=== PATIENT | female | born 1950 | race Caucasian/White ===

== ENCOUNTER 2016-11-24 14:09 | Emergency (ER) | payer MEDICARE ==
[2016-11-24 15:22] LABS: Hematocrit 43 % (35-47); Hemoglobin 13.8 g/dl (12.0-16.0); Mean Corpuscular HGB Conc 33 g/dl (31-36); Mean Corpuscular Hemoglobin 31 pg (27-31); Mean Corpuscular Volume 96 fL (80-97); Mean Platelet Volume 9 um3 (7.4-10.4); Red Blood Count 4.45 10^6/ul (4.0-5.4); Red Cell Distribution Width 14 % (10.5-15)
[2016-11-24 15:37] LABS: Albumin 4.3 g/dL (3.2-5.2); Calcium 8.9 mg/dL (8.6-10.3); EGFR African American 57.6 (>60); EGFR Non-African American 44.8 (>60); Globulin 2.8 g/dL (2-4); Potassium 4.2 mmol/L (3.5-5.0); Total Bilirubin 0.6 mg/dL (0.2-1.0); Total Protein 7.1 g/dL (6.4-8.9)
[2016-11-24] MEDS ORDERED: Iodixanol* (CONTRAST) 320 MG/ML 100 ML SDV IV ONE (15:42)
--- NOTE | 2016-11-24 17:48 | RAD ---
INDICATION: Sore throat post transesophageal echocardiogram. Dark stool today. COMPARISON: No relevant prior exams available on the [facility] PACS for comparison. TECHNIQUE: Multidetector CT images skull base to lung apices with 50 mL Visipaque 320 IV contrast. Multiplanar reformation. REPORT: Asymmetry in the hypopharyngeal mucosal space contours with obscuration of the RIGHT lateral pharynx to hypopharynx including the piriform recess. Symmetric parapharyngeal fat. No soft tissue abscess collection evident. Negative for presence of an abnormal soft tissue gas collection. Negative for neck lymphadenopathy. Unremarkable parotid, submandibular, and thyroid glands. Mild atherosclerotic plaque at the carotid bifurcations without hemodynamic significant stenosis resulting. Negative for fracture or suspicious focal osseous lesions. Multilevel degenerative spondylosis and facet joint osteoarthritis. At C5-C6 uncinate process spurring and facet joint osteoarthritis results in severe RIGHT foraminal stenosis. At C6-C7 uncinate process spurring and facet joint osteoarthritis results in mild bilateral foraminal stenosis. Clear paranasal sinuses and mastoid air spaces. IMPRESSION: 1. Edema of the RIGHT pharynx through hypopharynx mucosal space extending down to the piriform recess. No discrete mass or abscess collection evident. Negative for presence of an abnormal soft tissue gas collection. Correlate with clinical assessment and consider follow-up direct optical inspection of the mucosa. 2. Negative for lymphadenopathy.
[2016-11-24 18:29] VITALS: BP 103/59
== END 2016-11-24 18:55 | disposition home or self-care (01) ==
LOC: ED 14:09
DX: J39.2 Other diseases of pharynx (principal)
CPT/HCPCS: 36415; 70491; 80053; 82272; 85025; 85610; 85730; 86850; 86900; 86901; 93005; 99282; Q9967

== ENCOUNTER 2017-07-16 15:09 | Emergency (ER) | payer MEDICARE ==
--- NOTE | 2017-07-16 15:42 | UC ---
Laceration HPI - HPI Summary HPI Summary: 67 year old fell on face; 1.5 cm lac of upper lip. no other complaints specifically no complaints of neck pain or LOC or loose teeth or jaw pain. - History Of Current Complaint Chief Complaint: UCLaceration Stated Complaint: FELL CUT LIP Time Seen by Provider: 07/16/17 15:28 Hx Obtained From: Patient Laceration Location: Face - upper lip Mechanism Of Injury: Blunt Trauma Onset/Duration: Sudden Onset Severity: Mild Pain Intensity: 2 Aggravating Factors: Nothing Facial Trauma: 1 - 1.5 cm not through marcelina border - Allergies/Home Medications Allergies/Adverse Reactions: Allergies Allergy/AdvReac Type Severity Reaction Status Date / Time No Known Allergies Allergy Verified 07/16/17 15:26 PMH/Surg Hx/FS Hx/Imm Hx - Additional Past Medical History Additional PMH: mitral & triscupid repair 2013 Previously Healthy: Yes Cardiovascular History: Other - mitral, tricuspid diesease Other Cardiovascular History: NON CONTRIBUTORY - Surgical History Surgical History: Yes Surgery Procedure, Year, and Place: MITRAL VALVE AND TRICUSPID REPAIR,, 2012, [facility]. TONSILECTOMY, [facility]. APPENDECTOMY, 1968, [place]. TUBAL LIGATION, 1980 , [facility]. BREAST CYSTS EXCIZED, , [facility]. HYSTERECTOMY, [facility]. - Family History Known Family History: Positive: Cardiac Disease - Social History Occupation: Retired Alcohol Use: Daily Alcohol Amount: 1-2 PER DAY Substance Use Type: None Smoking Status (MU): Never Smoked Tobacco Amount Used/How Often: PACK A DAY Have You Smoked in the Last Year: No When Did the Patient Quit Smoking/Using Tobacco: 6 YEARS - Immunization History Most Recent Tetanus Shot: unk, thinks she's current Vaccination Up to Date: Yes Review of Systems Constitutional: Negative Skin: Negative Eyes: Negative ENT: Negative Respiratory: Negative Cardiovascular: Negative Gastrointestinal: Negative Genitourinary: Negative Motor: Negative Neurovascular: Negative Musculoskeletal: Negative Neurological: Negative Psychological: Negative Is Patient Immunocompromised?: No All Other Systems Reviewed And Are Negative: Yes - Comments Additional Review of Systems Comments: appears to be isolated lip laceration Physical Exam - Summary Physical Exam Summary: left upper lip 1.5 cm laceration; no apparent pain or other injury. Triage Information Reviewed: Yes Appearance: Well-Appearing Vital Signs: Initial Vital Signs Temp 97.7 F 07/16/17 15:26 Pulse 68 07/16/17 15:26 Resp 18 07/16/17 15:26 BP 119/75 07/16/17 15:26 Pulse Ox 97 07/16/17 15:26 Eye Exam: Normal ENT Exam: Normal Dental Exam: Normal - NO LOOSE TEETH OR JAW PAIN Neck exam: Normal Neck: Positive: 1 Respiratory Exam: Normal Respiratory: Positive: Lungs clear Cardiovascular Exam: Normal Abdominal Exam: Normal Musculoskeletal Exam: Normal Neurological Exam: Normal Psychological Exam: Normal Skin Exam: Normal Laceration Repair - Laceration Repair 1 Description: Linear Laceration Size After Repair: Length (cm) - 1.5 cm, Width (mm) - 2mm, 1 mm after repair, Depth (mm) - 2mm Modified For Repair: No - not through marcelina border Anesthesia Used: 1.0% Lido - with epi plus LET first Cleansing Completed Via Routine Prep: Yes Irrigation With Pressure Irrigation Device: Yes Closure Material: Sutures - 6.0 prolene Closure Method: Single Layer - 2 placed Suture Of: Skin Suture Type: Prolene Laceration Course/Dx - Course/Dx Course Of Treatment: healthy 67 year old female; fell,no loc or other injury. Isolated superficial laceration of upper life on right. Also abrasion interior part of lip but not through and through. Will removed sutures in 5 days; keep soft with ointment; start on 3 days of penicillin. - Differential Dx - Laceration/Wound Differental Diagnoses: Laceration Provider Diagnoses: right upper lip laceration: repaired Discharge - Discharge Plan Condition: Stable Disposition: HOME Prescriptions: Penicillin VK TAB* [Penicillin VK 250 mg Tab*] 250 mg PO QID #12 tab MDD 4 Patient Education Materials: Laceration (ED) Referrals: Sandee Conner MD [Primary Care Provider] - Additional Instructions: WE DISCUSSED: CLEAN MORNING AND NIGHT WITH WARM SOAPY WATER OR DILUTE PEROXIDE. USE OINTMENT ANTIBIOTIC AFTER CLEANING. YOU CAN USE THIS WHENEVER YOU FEEL THE WOUND IS EXPOSED TO THE AIR. KEEP IT COVERED SO THERE IS NO CRUST FORMED ON IT. RE CHECK AT ANY TIME FOR INCREASED PAIN, REDNESS. TAKE PCN 4 TIMES A DAY FOR 3 DAYS/. SUTURES OUT IN 5 DAYS HERE OR WITH YOUR DOCTOR. CALL US AT ANY TIME FOR QUESTIONS OR CONCERNS.
[2017-07-16] MEDS ORDERED: Lidocaine 2% W/EPI 1:100,000* 20 ML MDV INJ ONE (15:49)
[2017-07-16] MEDS ORDERED: Lidocaine/Epineph/Tetraca SOL* (LET solution) 4 ML BTL TOPICAL ONE (15:55)
[2017-07-16] MEDS ORDERED: Lidocaine 2% EPI 1:200000 MPF* 10 ML VIAL INJ ONE (15:56)
[2017-07-16 15:57] VITALS: BP 119/75
[2017-07-16] MEDS ORDERED: Lidocaine 1% MPF wEPI 200,000* 30 ML SDV INJ ONE (16:03)
== END 2017-07-16 16:43 | disposition home or self-care (01) ==
LOC: UCEAST 15:09
DX: Z87.891 Personal history of nicotine dependence (principal); S01.511A Laceration without foreign body of lip, initial encounter; W19.XXXA Unspecified fall, initial encounter; Y93.9 Activity, unspecified; Y92.9 Unspecified place or not applicable
CPT/HCPCS: 12011; 99212; G0463; J2001

== ENCOUNTER 2017-09-01 07:01 | Day surgery (SDC) | payer MEDICARE ==
--- NOTE | 2017-08-22 17:31 | HP ---
Amended report to enter cosigning physician. CC: Dr. Burt; Dr. Sandee Conner; Dr. Catalan* PREOPERATIVE HISTORY AND PHYSICAL: DATE OF ADMISSION: 09/01/17. This patient is scheduled for same-day surgery admission by Dr. Burt, on 09/01/17. DATE OF EXAMINATION: 08/22/17. ATTENDING SURGEON: Dr. Mariya Burt* (dictated by Yeni Muniz NP). CHIEF COMPLAINT: Right breast ductal carcinoma in situ. HISTORY OF PRESENT ILLNESS: The patient is a 67-year-old female, recently evaluated by Dr. Burt; the patient had a routine mammogram that found a change in the right breast and prompted an ultrasound and then a sono-guided biopsy was advised. The biopsy showed ductal carcinoma in situ and she was referred to Dr. Burt. She has not noticed any lumps in the breast, any nipple discharge, any changes in the skin. She denies any breast pain. She denies any family history of breast cancer. Menarche was at age 11. Menopause at age 51; she took control pills for less than 10 years. She does not have any relatives with a history of ovarian cancer. Dr. Burt has examined the patient and reviewed the above findings with her and has recommended mammo- guided needle localization excision of the right breast ductal carcinoma in situ as a same-day surgery procedure with local anesthetic and intravenous sedation. Dr. Burt described the nature of the surgical procedure, the rationale for the procedure, the relevant risks and benefits and today I have reviewed the expected postoperative care and recovery. The patient has had a chance to ask questions and stated that she understands the information and is satisfied with the answers given to her questions. She will sign surgical consent on the day of surgery. PAST MEDICAL HISTORY: Significant for well-controlled hypertension; hyperlipidemia; status post mitral valve replacement and tricuspid valve replacement in 2013 at [facility] in [place] for severe mitral insufficiency and vtwhvggd-xw-xrmepy tricuspid insufficiency. PAST SURGICAL HISTORY: Mitral valve replacement and tricuspid valve replacement in 2013, [facility] in [place]; total abdominal hysterectomy, bilateral salpingo-oophorectomy; tonsillectomy, and appendectomy. OB HISTORY: 0. Last menstrual period 2001. MEDICATIONS: 1. Wellbutrin SR 150 mg p.o. daily. 2. Metoprolol ER 25 mg 1 tablet b.i.d. 3. Aspirin 81 mg p.o. daily and she will hold that for 5 days preop. 4. Simvastatin 10 mg daily at bedtime. 5. Multivitamins daily. ALLERGIES: No known drug allergies. FAMILY HISTORY: Positive for heart disease. No known anesthesia complications , bleeding tendencies, or clotting disorders. 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 REVIEW OF SYSTEMS: Constitutional: No fevers, chills, excessive fatigue, or weight loss. Endocrine: No diabetes or thyroid disease. Hematologic: No easy bruising or bleeding. No previous blood transfusions. Breasts: As described in history of present illness. Respiratory: No dyspnea on exertion or chronic cough. Cardiovascular: She is followed by Dr. Catalan and was seen in his office, on 07/17/17 and she will have another preoperative visit on 08/23/17. She denies any chest pain, palpitations, or shortness of breath. She denies any dizziness or syncopal episodes. EKG, 07/17/17, in Dr. Catalan' s office revealed normal sinus rhythm, short KS syndrome and diffuse non- specific abnormality in V1, and V2; she had a ACE in October of 2016 showing ejection fraction 55% to 60%, trace aortic insufficiency and xucv-il-logywagt mitral insufficiency. Dr. Catalan felt that overall, she was compensated. There was no sign of congestive heart failure. Gastrointestinal: No nausea, vomiting, diarrhea, GI bleeding, or constipation. Genitourinary: No dysuria. Musculoskeletal: No complaints today of joint or back pain, but she does have localized osteoarthritis. Neurologic: No headache or blurred vision. No areas of focal weakness or numbness. General: With general anesthesia, she reports severe nausea; no history of deep vein thrombosis or pulmonary embolism. PHYSICAL EXAMINATION GENERAL SURVEY: The patient is a 67-year-old female, well developed, well nourished, in no acute distress. VITAL SIGNS: Height 64.5 inches, weight 130 pounds, body mass index 22. Blood pressure 106/70, pulse 66 and regular, respiratory rate 18, temperature 97.7 tympanic. HEENT: Benign. NECK: Supple. No cervical lymphadenopathy. No supraclavicular lymphadenopathy. BACK: No CVA tenderness. BREASTS: Symmetrical. There is resolving bruising of the right breast and a small eschar where the sono-guided biopsy was done. No infection. No palpable masses in the right breast. No palpable masses in the left breast. Nipples are intact bilaterally. No nipple discharge. No palpable axillary lymphadenopathy. LUNGS: Breath sounds bilaterally clear and equal. HEART: Regular rate and rhythm. No murmurs or rubs appreciated. ABDOMEN: Active bowel sounds, soft, nondistended, nontender throughout. Well- healed Pfannenstiel scar. No obvious masses, organomegaly or evidence of ventral or incisional hernia. PELVIC: Exam deferred. RECTAL: Exam deferred. EXTREMITIES: Warm without edema or skin ulceration. NEUROLOGIC: Alert, and oriented x3. Steady gait. SKIN: Warm, dry, intact. IMPRESSION: Right breast ductal carcinoma in situ. PLAN: Same-day surgery admission to Dr. Burt's service, on 09/01/17 for mammo-guided needle localization excision of right breast ductal carcinoma in situ. ANGLE MUNIZ NP [id number]/[facility] #: [id number] LATA
[~2017-09-01 07:01] MED LIST: Buffered Lidocaine 0.9% SYRIN* 5 ML/SYR SYRINGE INTRADERM ONE; Dexamethasone IV* 4 MG/ML 1 ML (4 MG) IV SLOW PU ONE; Famotidine TAB* 20 MG PO ONE
[2017-09-01] MEDS ORDERED: Dexamethasone IV* 4 MG/ML 1 ML (4 MG) ONE (07:11)
[2017-09-01] MEDS ORDERED: Heparin VIAL(*) 5000 UNITS/ML VIAL (FIVE THOUSAND) ONE (07:11)
[2017-09-01] MEDS ORDERED: ceFAZolin 2 GM PREMIX (*) 2 GM/50 ML BAG IVPB ONE (07:12)
[2017-09-01] MEDS ORDERED: Famotidine TAB* 20 MG ONE (07:12)
[2017-09-01] MEDS ORDERED: Lidocaine 2.5%/Prilocain 2.5%* 5 GM TUBE ONE (07:12)
[2017-09-01] MEDS ORDERED: Lidocaine 1% INJ* 10 MG/ML 30 ML SDV ONE (10:08)
[2017-09-01] MEDS ORDERED: Bupivacaine 0.5%* 50 ML VIAL ONE (10:09)
[2017-09-01] MEDS ORDERED: Lidocaine 1% MPF wEPI 200,000* 30 ML SDV ONE (10:13)
[2017-09-01] MEDS ORDERED: fentaNYL* 50 MCG/ML 2 ML VIAL (100 MCG VIAL) ONE (10:15)
[2017-09-01] MEDS ORDERED: Midazolam* 1 MG/ML 5 ML VIAL (5 MG) ONE (10:15)
[2017-09-01] MEDS ORDERED: oxyCODONE/Acetamin 5/325 MG* TAB PO PRN (10:27)
[2017-09-01] MEDS ORDERED: Naloxone* 0.4 MG/ML 1 ML VIAL IV PRN (10:27)
[2017-09-01] MEDS ORDERED: HYDROcodone/ACETAMIN 5-325 MG* 1 TAB PO PRN ×3 (10:27→12:02)
[2017-09-01] MEDS ORDERED: fentaNYL* 50 MCG/ML 2 ML VIAL (100 MCG VIAL) IV PRN (10:27)
[2017-09-01] MEDS ORDERED: DiMENhydriNATE IV* 50 MG/ML VIAL IV PUSH PRN (10:27)
[2017-09-01] MEDS ORDERED: Propofol* 10 MG/ML 20 ML BTL IV PUSH ONE (10:41)
[2017-09-01] MEDS ORDERED: Lidocaine 2% PF * 5 ML VIAL ONE (10:41)
[2017-09-01] MEDS ORDERED: Ondansetron INJ* 2 MG/ML VIAL ONE (11:05)
[2017-09-01] MEDS ORDERED: EPHEDrine (Pressors)* 50 MG/ML VIAL ONE (11:07)
--- NOTE | 2017-09-01 11:42 | RAD ---
INDICATION: Wire needle localization right breast COMPARISON: Mammogram August 02, 2017 TECHNIQUE/FINDINGS: Informed consent was obtained. A routine timeout procedure was called. The right breast was then prepped in usual fashion and following infiltration with lidocaine for local anesthesia and from a cephalad approach utilizing a 7.5 cm Balderas wire/needle, the microclip was localized without difficulty. The patient tolerated the procedure well. There are no procedural complications. Specimen radiograph is pending. IMPRESSION: SUCCESSFUL WIRE NEEDLE LOCALIZATION PROCEDURE. SPECIMEN RADIOGRAPH PENDING. ADDENDUM: The specimen radiograph reveals that wire and microclip are within the biopsy specimen.
--- NOTE | 2017-09-01 12:02 | BRIEFOPN ---
Brief Operative Note - Surgery Procedures: Procedures CATARAC PHACOEMULS/ASPIR (08/21/13) CORONAR ARTERIOGR-2 CATH (02/01/13) ENDOSC POLYPECTOMY OF LG INTEST (07/24/14) INSERT LENS AT CATAR EXT (08/21/13) LT HEART ANGIOCARDIOGRAM (02/01/13) RT/LEFT HEART CARD CATH (02/01/13) 09/01/17 Op Note Pre-op dx: right breast DCIS Post-op dx: same Procedure: needle localization excision of right breast DCIS Surgeon: Javed Asst: none Anesth: local-MAC EBL: 5 cc SCDs on during surgery Abx: given pre-op complications: none Pt. tolerated procedure well and was transferred to in a stable condition. CLFoster
[2017-09-01 12:35] VITALS: BP 131/81
--- NOTE | 2017-09-02 04:00 | OP ---
CC: Dr. Sandee Conner; [facility] * DATE OF OPERATION: 09/01/17 - [facility] DATE OF : 48 SURGEON: Mariya Burt MD CAMERA PROTOTYPING ENGINEER: There was no boiler assistant operator for this case. PRE-OP DIAGNOSIS: Right breast ductal carcinoma in situ. POST-OP DIAGNOSIS: Right breast ductal carcinoma in situ. OPERATIVE PROCEDURE: Needle localization and excision of right breast ductal carcinoma in situ. INDICATIONS: Ms. Longo is a 67-year-old woman who presented to the office with recently diagnosed ductal carcinoma in situ of the right breast. This prompted the plan for surgical intervention. On the morning of surgery, she underwent needle localization without difficulty. DESCRIPTION OF PROCEDURE: She was then brought to the operating room, placed on the OR table in a supine position and given IV sedation. The right breast was prepped and draped in the usual sterile fashion taking care not to dislodge the localizing wire. After infiltrating with local anesthetic, an incision was made encompassing the wire in a curvilinear elliptical fashion. Subcutaneous tissue was then divided with electrocautery to completely excise the massive tissue from around the wire. This was handed off with the usual markings as a specimen. Hemostasis was assured with electrocautery and then once this appeared adequate, some additional local was instilled into the wound and then closure was accomplished. 3-0 Polysorb was used to reapproximate subcutaneous tissue, and the skin was closed with 4-0 Prolene in a subcuticular fashion. Steri-Strips and a dry sterile dressing were applied. All sponge and instrument counts were correct. The patient tolerated the procedure well and was transferred to Recovery in a stable condition. [id number]/[facility] #: [id number] [facility]
== END 2017-09-01 12:41 | disposition home or self-care (01) ==
LOC: SDS 07:01
PROVIDERS: ATTEND Surgery
DX: D05.91 Unspecified type of carcinoma in situ of right breast (principal); I10 Essential (primary) hypertension; E78.5 Hyperlipidemia, unspecified; Z95.2 Presence of prosthetic heart valve; I08.1 Rheumatic disorders of both mitral and tricuspid valves; Z87.891 Personal history of nicotine dependence
CPT/HCPCS: 88307; 88341; 88342; 88360; A9270-GY; J0690; J1100; J1644; J2001; J2250; J2405; J2704; J3010

== ENCOUNTER 2017-10-06 08:31 | Day surgery (SDC) | payer MEDICARE ==
--- NOTE | 2017-10-02 18:41 | HP ---
CC: Dr. Conner; Dr. Simmons; Dr. Valverde * ADMISSION HISTORY AND PHYSICAL: DATE OF ADMISSION: 10/06/17 - [facility] ATTENDING SURGEON: Mariya Burt MD * (GRICELDA Asencio, dictating) CHIEF COMPLAINT: Right breast cancer. HISTORY OF PRESENT ILLNESS: This is a 67-year-old female who recently on underwent wide excision of the right breast for a mammogram finding that by biopsy was shown to be ductal carcinoma in situ. However, on final pathology, the specimen was noted to have an invasive component measuring 4 cm which was ER and MD positive and HER-2/conrado negative. The deep margin was clear by 3 mm. All the other margins were clear by at least 10 mm. The specimen was also noted to have a 3 cm component of DCIS in conjunction with the invasive changes. All margins of DCIS were clear by at least 5 mm. An MRI was obtained on 09/15/17 showing postoperative changes in the 12 o'clock position of the right breast, but no other suspicious changes in either breast. Dr. Burt has discussed with her the plan and the patient understands the indications, risks, benefits, and alternatives. She would like to proceed as scheduled with sentinel lymph node biopsy of the right breast (axilla). PAST MEDICAL HISTORY: 1. Hyperlipidemia. 2. History of cardiomyopathy prior to mitral valve and tricuspid valve repairs done concurrently in 2012 at [facility] in [place]. She is followed regularly by Dr. Catalan (see under review of systems and history of present illness from 08/22/17). The patient was not felt to require any additional evaluation for cardiac risk assessment. 3. Depression. PAST SURGICAL HISTORY: Include: 1. Right breast wide excision on 09/01/17 as noted above. 2. Mitral valve and tricuspid valve repairs in 2014. 3. Total abdominal hysterectomy with bilateral salpingo-oophorectomy for benign disease. 4. Tonsillectomy. 5. Appendectomy. 6. Tubal ligation. No reported surgical or anesthetic complications other than postoperative nausea and vomiting from general anesthesia. CURRENT MEDICATIONS: 1. Wellbutrin SR 150 mg daily. 2. Metoprolol ER 25 mg b.i.d. 3. Aspirin 81 mg daily (the patient will hold preoperatively, her last dose being 10/01/17). 4. Simvastatin 10 mg q.h.s. 5. Multivitamin once daily. DRUG ALLERGIES: None known. FAMILY HISTORY: Positive for heart disease. None known anesthesia complications, bleeding tendencies, or clotting disorders. SOCIAL HISTORY: She lives alone at [facility]. She is a former smoker who quit in 2007, but does have approximate 55-pidk-jmmj history. She will discuss low dose CT lung cancer screening with Dr. Simmons. She drinks wine with dinner several times a week. She denies use of other substances. REVIEW OF SYSTEMS: General: No fevers, chills, excessive fatigue, or weight loss. Endocrine: No diabetes or thyroid disease. Hematologic: No easy bruising or bleeding. No previous blood transfusion. Breasts: As above per HPI. Respiratory: No dyspnea on exertion or chronic cough. Cardiovascular: Seen recently by Dr. Catalan on 07/17/17 (see separate notes). Gastrointestinal: No nausea, vomiting, diarrhea, GI bleeding, or constipation. Most recent colonoscopy within 3 to 5 years, normal study with recommended 10- year followup. : No problems reported. Musculoskeletal: Some localized osteoarthritis, but no joint complaints today. Neurological: No headache or blurred vision. No areas of focal weakness or numbness. Hematological/ Oncological: No history of DVT or PE. PHYSICAL EXAMINATION GENERAL: Well-nourished, well-developed female, in no acute distress. Exam today is limited. VITAL SIGNS: Height 54.5 inches, weight 130 pounds. Blood pressure 98/60, pulse 76, respirations 16. HEENT: Unremarkable. Pupils equal, round, and reactive. No intraoral lesions. NECK: No lymphadenopathy in the cervical or supraclavicular regions. No thyromegaly or masses. LUNGS: Clear to auscultation. No rales or wheezes. BREASTS: Not reexamined today. HEART: Regular rate and rhythm. No murmur noted. The remainder of the physical exam is without change from her history and physical from 08/22/17. IMPRESSION: Right breast cancer. PLAN: Dolores lymph node biopsy, right breast. GRICELDA ASENCIO [id number]/[facility] #: [id number] [facility] CENTERJamil
[~2017-10-06 08:31] MED LIST changes: +Famotidine IV* 10 MG/ML 2 ML (20 mg) IV ONE; -Famotidine TAB* 20 MG PO ONE; +Ondansetron ODT TAB* 4 MG PO ONE
[2017-10-06] MEDS ORDERED: Lidocaine 2.5%/Prilocain 2.5%* 5 GM TUBE ONE ×2 (08:40→13:21)
[2017-10-06] MEDS ORDERED: Dexamethasone IV* 4 MG/ML 1 ML (4 MG) ONE (08:40)
[2017-10-06] MEDS ORDERED: Famotidine IV* 10 MG/ML 2 ML (20 mg) ONE (08:40)
[2017-10-06] MEDS ORDERED: Ondansetron ODT TAB* 4 MG ONE (08:40)
--- NOTE | 2017-10-06 14:38 | RAD ---
INDICATION: RIGHT breast lymphoscintigraphy requested following change in pathologic diagnosis from DCIS to invasive ductal carcinoma based on surgical lumpectomy specimen from September 01, 2017. PROCEDURE: The risks and benefits of the procedure were explained to the patient. Written informed consent was obtained. 0.317 mCi total of filtered sulfur colloid were injected intradermal in 4 divided doses along the areolar margin flanking the 11 -- 12:00 tumor site. Spot images?were?obtained?of?the?thorax with the ipsilateral arm over the head. No propagation of radiopharmaceutical from the areola margin injection sites observed on scintiphotos obtained up to 4 hours postinjection. IMPRESSION: Unsuccessful lymphoscintigraphy RIGHT breast likely due to soft tissue edema at the surgical site. Results discussed with the patient and Dr. Burt following the procedure.
[2017-10-06] MEDS ORDERED: fentaNYL* 50 MCG/ML 2 ML VIAL (100 MCG VIAL) ONE (15:56)
[2017-10-06] MEDS ORDERED: Midazolam* 1 MG/ML 5 ML VIAL (5 MG) ONE (15:56)
[2017-10-06] MEDS ORDERED: Propofol* 10 MG/ML 20 ML BTL IV PUSH ONE (15:56)
[2017-10-06] MEDS ORDERED: Lidocain 1% EPI 1:100,000 * 30 ML MDV ONE (16:57)
[2017-10-06] MEDS ORDERED: Bupivacaine 0.5% SDV PF* 30ML VIAL ONE (16:58)
[2017-10-06] MEDS ORDERED: ceFAZolin 1 GM in Dextrose (*) 2 GM/100 ML BAG IVPB ONE (17:16)
[2017-10-06] MEDS ORDERED: Ibuprofen TAB* 600 MG PO PRN (17:47)
[2017-10-06] MEDS ORDERED: DiMENhydriNATE IV* 50 MG/ML VIAL IV PUSH PRN (17:47)
[2017-10-06] MEDS ORDERED: fentaNYL* 50 MCG/ML 2 ML VIAL (100 MCG VIAL) IV PRN (17:47)
[2017-10-06] MEDS ORDERED: Naloxone* 0.4 MG/ML 1 ML VIAL IV PRN (17:47)
[2017-10-06] MEDS ORDERED: Ondansetron INJ* 2 MG/ML VIAL IV PRN (17:47)
[2017-10-06] MEDS ORDERED: Ibuprofen TAB* 600 MG ONE (17:59)
[2017-10-06 18:14] VITALS: BP 146/83
--- NOTE | 2017-10-07 12:43 | OP ---
CC: Dr. Mark Simmons * DATE OF OPERATION: 10/06/17 - [facility] DATE OF : 48 SURGEON: Mariya Burt MD. CONTRACT DESIGN AGENT: Lorena Vyas NP PRE-OP DIAGNOSIS: Right breast cancer. POST-OP DIAGNOSIS: Right breast cancer. OPERATIVE PROCEDURE: Edwards lymph node biopsy. INDICATIONS: Ms. Longo is a 67-year-old woman who recently underwent surgery for breast cancer that was thought to be DCIS based on stereotactic biopsy preoperatively. However, after surgery and pathologic specimen was analyzed, it was recognized that there was invasive cancer and so a sentinel lymph node procedure was chosen. On the morning of surgery, she underwent an attempted sentinel lymph node localization; however, the radiotracer did not progress to the axilla. So, the decision was made to inject blue dye. This was done in the holding area prior to surgery. DESCRIPTION OF PROCEDURE: She was then brought to the operating room, placed on the OR table in supine position and given IV sedation. The right breast and axilla were prepped and draped in the usual sterile fashion. After infiltrating with local anesthetic, a curvilinear incision was made in the axilla and subcutaneous tissue was divided with a combination of sharp and blunt dissection to expose the axillary fat pad. Search was made for a blue stained node and the first node encountered was not blue stained; however, a further search with blunt dissection revealed brightly stained node with easily visible lymphatic channel that was blue stained progressing to this node. This node was taken using clips to control blood and lymphatic channels that approached it and was handed off as a specimen. The wound was irrigated with saline. Some additional local was instilled to the wound and then closure was accomplished with 3-0 Vicryl to reapproximate the subcutaneous tissue and the skin was closed with 4-0 Prolene in a subcuticular fashion. Steri-Strips and a dry sterile dressing were applied. All sponge and instrument counts are correct. The patient tolerated the procedure well and was transferred to Recovery in a stable condition. [id number]/[facility] #: [id number] [facility]
== END 2017-10-06 18:34 | disposition home or self-care (01) ==
LOC: SDS 08:31
PROVIDERS: ATTEND Surgery
DX: C50.911 Malignant neoplasm of unspecified site of right female breast (principal); E78.5 Hyperlipidemia, unspecified; Z87.891 Personal history of nicotine dependence; I10 Essential (primary) hypertension; I08.1 Rheumatic disorders of both mitral and tricuspid valves; M19.90 Unspecified osteoarthritis, unspecified site; F32.9 Major depressive disorder, single episode, unspecified
CPT/HCPCS: 78195; 88307; 88342; A9270-GY; A9541; J0690; J1100; J2250; J2704; J3010

== ENCOUNTER 2017-12-08 16:55 | Observation (INO) | payer MEDICARE ==
[2017-12-08] MEDS ORDERED: Acetaminophen TAB* 325 MG PO PRN (16:58)
[2017-12-08] MEDS ORDERED: Ondansetron INJ* 2 MG/ML VIAL IV PRN (16:58)
[2017-12-08] MEDS ORDERED: NS 0.9% 1000 ML* 1,000 ML IV SCH (17:00)
[2017-12-08] MEDS ORDERED: Enoxaparin(*) 40 MG/0.4 ML SYR SUBCUT SCH (17:00)
[2017-12-08] MEDS ORDERED: Aspirin EC TAB* 81 MG TAB.EC PO SCH (18:00)
[2017-12-08] MEDS: Prochlorperazine TAB* 10 MG PO PRN (21:49)
[2017-12-08] MEDS: Metoprolol Succinate XL TAB* 25 MG PO SCH (21:49)
[2017-12-09] MEDS: Prochlorperazine TAB* 10 MG PO PRN (03:54)
[2017-12-09 05:51] LABS: Hematocrit 25 % (35-47); Hemoglobin 8.3 g/dl (12.0-16.0); Mean Corpuscular HGB Conc 34 g/dl (31-36); Mean Corpuscular Hemoglobin 31 pg (27-31); Mean Corpuscular Volume 93 fL (80-97); Mean Platelet Volume 7.5 um3 (7.4-10.4); Platelet Count 523 10^3/ul (150-450); Red Blood Count 2.65 10^6/ul (4.00-5.40); Red Cell Distribution Width 15 % (10.5-15)
[2017-12-09 05:58] LABS: ABS Basophils 0.5 10^3/ul (0-0.2); ABS Eosinophils 0 10^3/ul (0-0.6); ABS Lymphocytes 0.5 10^3/ul (1.0-4.8); ABS Monocytes 0.5 10^3/ul (0-0.8); ABS Neutrophils 52.5 10^3/ul (1.5-7.7); ABS Nucleated RBC 0 10^3/ul; Eosinophil % 0 % (0-6); Nucleated Red Blood Cells % 0
[2017-12-09 06:07] LABS: EGFR Non-African American 109.9 (>60)
[2017-12-09 07:18] VITALS: BP 103/30
[2017-12-09] MEDS: Metoprolol Succinate XL TAB* 25 MG PO SCH (07:48)
--- NOTE | 2017-12-09 08:25 | DS ---
- Discharge Summary BRIEF OBV DISCHARGE SUMMARY ADMIT DATE:12/08/2017 DISCHARGE DATE:12/09/2017 DISCHARGE DIAGNOSIS: 1. chemotherapy induced nausea and vomiting 2. T2N0 breast cancer sp TC chemotherapy DISCHARGE MEDICATIONS: Home Medications Medication Instructions Recorded Confirmed Type Metoprolol Succinate XL TAB* 25 mg PO BID 11/22/16 12/08/17 History [Toprol XL TAB*] Multivit-Min/Iron Fum/Folic AC 1 tab PO QAM 11/22/16 12/08/17 History [Xceln-Hrhnmca-Nghbqifw Tablet] Aspirin EC TAB* [Ecotrin EC Low 81 mg PO QPM 11/24/16 12/08/17 History Dose 81 MG*] Simvastatin TAB(NF) [Zocor 10 MG 10 mg PO BEDTIME 11/24/16 12/08/17 History (NF)] buPROPion SR TAB* [Wellbutrin SR 150 mg PO QAM 11/24/16 12/08/17 History TAB*] Naproxen TAB* [Naprosyn 250 mg 500 mg PO DAILY PRN 12/08/17 12/08/17 History TAB*] Ondansetron TAB* [Zofran 4 MG Tab*] 4 mg PO Q4HR PRN 12/08/17 12/08/17 History Prochlorperazine TAB* [Compazine 10 mg PO Q6H PRN 12/08/17 12/08/17 History Tab*] DISCHARGE FOLLOW UP: 12/25 Dr. Simmons at 1 pm HOSPITAL COURSE: see full admit H+P, briefly Bertha was admitted with CINV. She got continued hydration and antiemetics over night and feels markedly better today and prepared for discharge. she will follow up with Dr. Simmons as planned and will consider elective hydration days 2 and/or 3 for her last cycle. Her leukocytosis is most certainly related to neulasta plus dexamethasone.
[2017-12-09] MEDS ORDERED: buPROPion SR TAB.SR* 150 MG PO SCH (09:00)
== END 2017-12-09 10:00 | disposition home or self-care (01) ==
LOC: INTOOBSV 17:43 → MED 17:43
PROVIDERS: ADMIT Internal Medicine Hematology & Oncology; ATTEND Internal Medicine Hematology & Oncology
DX: R11.2 Nausea with vomiting, unspecified (principal); C50.919 Malignant neoplasm of unspecified site of unspecified female breast; Z92.21 Personal history of antineoplastic chemotherapy; Z79.82 Long term (current) use of aspirin; F32.9 Major depressive disorder, single episode, unspecified; R06.00 Dyspnea, unspecified; E78.5 Hyperlipidemia, unspecified; M19.91 Primary osteoarthritis, unspecified site; I34.0 Nonrheumatic mitral (valve) insufficiency; R00.2 Palpitations; R00.0 Tachycardia, unspecified
CPT/HCPCS: 36415; 80053; 82728; 83540; 83550; 85025; 96374; 96375; 99219; A9270-GY; G0378; J1650; Q0164

== ENCOUNTER 2017-12-10 10:32 | Inpatient (IN) | payer MEDICARE ==
[2017-12-10] MEDS ORDERED: Adenosine* 3 MG/ML VIAL ONE (10:42)
--- NOTE | 2017-12-10 10:49 | ED ---
Dizziness - HPI Summary HPI Summary: The patient is a 67 y/o F presenting to [facility] c/o dizziness and weakness with associated heart palpitations and SOB starting a few days ago. She had presented to the ED yesterday with similar symptoms that seemed to have been relieved, allowing her to to be discharged with a dx of dehydration. Her symptoms returned this morning and have worsened. Currently the patient is going through chemotherapy for breast cancer. She has had three treatments with the most recent one on 12/06/17, which she states was when she started feeling symptomatic. Her oncologist is Dr. Simmons, and her armored car messenger is Dr. Catalan. She has a hx of HTN, valvular heart disease, PAD, HLD. She does not have hx of atrial fibrillation. Previous smoker. Per nurse's report, the patient has a high heart rate in the 200s and low blood pressure in the 70s/40s at triage. - History Of Current Complaint Chief Complaint: EDDizziness Stated Complaint: WEAKNESS Time Seen by Provider: 12/10/17 10:45 Hx Obtained From: Patient Onset/Duration: Still Present, Gradually Timing: Days Severity Initially: Mild Severity Currently: Moderate Character: Weak, Dizzy Aggravating Factor(s): Nothing Alleviating Factor(s): Nothing Associated Signs And Symptoms: Positive: SOB, Other: - weakness, dizziness, heart palpitations - Allergies/Home Medications Allergies/Adverse Reactions: Allergies Allergy/AdvReac Type Severity Reaction Status Date / Time No Known Allergies Allergy Verified 10/06/17 08:56 PMH/Surg Hx/FS Hx/Imm Hx Endocrine/Hematology History: Denies: Hx Bone Marrow Disease, Hx Diabetes, Hx Sickle Cell Disease, Hx Anemia Cardiovascular History: Reports: Hx Coronary Artery Disease - MITRAL VALVE AND TRICUSPID REPAIR 03/2013 [place], Hx Hypercholesterolemia, Hx Hypertension, Hx Peripheral Vascular Disease - mid 50's resolved, Hx Valvular Heart Disease - heart valve surgery 2012, Other Cardiovascular Problems/Disorders - PAD, HYPERLIPIDEMIA Denies: Hx Angina, Hx Myocardial Infarction, Hx Pacemaker/ICD Respiratory History: Denies: Hx Asthma, Hx Chronic Obstructive Pulmonary Disease (COPD) History: Denies: Hx Renal Disease Musculoskeletal History: Reports: Hx Arthritis - GENERALIZED, ESPECIALLY IN HANDS Sensory History: Reports: Hx Contacts or Glasses Denies: Hx Cataracts, Hx Glaucoma, Hx Hearing Aid Opthamlomology History: Reports: Hx Contacts or Glasses Denies: Hx Cataracts, Hx Glaucoma Psychiatric History: Reports: Hx Anxiety - ON MEDS, Hx Depression - LONG HX OF, WELL CNTROLLED WITH MEDICATION Denies: Hx Panic Disorder - Cancer History Cancer Type, Location and Year: BREAST Hx Chemotherapy: No - Surgical History Surgery Procedure, Year, and Place: [place], 1955, [place] , [place]AL LIGATION, 1980, [facility]. EXCISION BREAST CYSTS, , [facility]. HYSTERECTOMY, BILATERAL OOPHORECTOMY, , [facility]. MITRAL VALVE AND TRICUSPID REPAIR, 2012, [place]. LEFT CATARACT EXT WITH IOL, 08/14/13, [facility] [place]. RIGHT CATARACT EXT WITH IOL, 08/21/13, [facility] [place]. MALIGNANT NEOPLASM OF RIGHT BREAST, 09/01/17 , [facility] [place]. Hx Anesthesia Reactions: Yes - NAUSEA WITH GENERAL ANES Infectious Disease History: No Infectious Disease History: Denies: Traveled Outside the in Last 30 Days - Family History Known Family History: Positive: Cardiac Disease - Social History Alcohol Use: Occasionally Alcohol Amount: 1-2 Substance Use Type: Reports: None Smoking Status (MU): Former Smoker Type: Cigarettes Amount Used/How Often: PACK A DAY- smoked off and on for 40 years Length of Time of Smoking/Using Tobacco: 40 YRS Have You Smoked in the Last Year: No Review of Systems Positive: Other - dizzy Positive: Palpitations Positive: Shortness Of Breath Positive: Weakness All Other Systems Reviewed And Are Negative: Yes Physical Exam - Summary Physical Exam Summary: VITAL SIGNS: Reviewed. GENERAL: Patient is a well-developed and nourished elderly female who is lying comfortable in the stretcher. Patient is not in any acute respiratory distress. HEAD AND FACE: No signs of trauma. No ecchymosis, hematomas or skull depressions. No sinus tenderness. EYES: PERRLA, EOMI x 2, No injected conjunctiva, no nystagmus. EARS: Hearing grossly intact. Ear canals and tympanic membranes are within normal limits. MOUTH: Oropharynx within normal limits. Dry oral mucosa. NECK: Supple, trachea is midline, no adenopathy, no JVD, no carotid bruit, no c- spine tenderness, neck with full ROM. CHEST: Symmetric, no tenderness at palpation LUNGS: Clear to auscultation bilaterally. No wheezing or crackles. CVS: Decreased blood pressure, regular rate and rhythm with tachycardia, S1 and S2 present, no murmurs or gallops appreciated. ABDOMEN: Soft, non-tender. No signs of distention. No rebound no guarding, and no masses palpated. Bowel sounds are normal. EXTREMITIES: FROM in all major joints, no edema, no cyanosis or clubbing. NEURO: Alert and oriented x 3. No acute neurological deficits. Speech is normal and follows commands. SKIN: Dry and warm Triage Information Reviewed: Yes Vital Signs On Initial Exam: Initial Vitals Temp Pulse Resp BP Pulse Ox 97.0 F 185 22 72/48 98 12/10/17 10:36 12/10/17 10:36 12/10/17 10:36 12/10/17 10:36 12/10/17 10:36 Vital Signs Reviewed: Yes Diagnostics - Vital Signs Vital Signs Temp Pulse Resp BP Pulse Ox 12/10/17 10:36 97.0 F 185 22 72/48 98 - Laboratory Result Diagrams: 12/10/17 10:57 12/10/17 10:57 Lab Statement: Any lab studies that have been ordered have been reviewed, and results considered in the medical decision making process. - Radiology CXR Xray Interpretation: No Acute Changes - Post-surgical changes, no evidence for acute finding. ED physician has reviewed this report. Radiology Interpretation Completed By: Radiologist - EKG 10:38 Cardiac Rate: Other Rate - RVR at 186 BPM EKG Rhythm: Atrial Fibrillation EKG Comparison: Other - New change from previous EKGs. Re-Evaluation - Re-Evaluation Second Eval Re-Evaluation Time: 11:34 Change: Unchanged Comment: I obtained permission to start blood transfusions for the patient. First Eval Re-Evaluation Time: 11:34 Change: Unchanged Comment: I obtained permission to start blood transfusions for the patient. Dizzy Course/Dx - Course Course Of Treatment: The patient was found to have decreased BP in the ED. The patient will follow up with PCP for better control of BP. Assessment/Plan: This patient is a 67-year-old female with past medical history significant for breast cancer undergoing active chemotherapy, depression, dyslipidemia, mitral valve disorder, appendectomy, hysterectomy, open heart surgery for mitral and tricuspid valve repair and tubal ligation. She presents to the emergency room today complaining that she is having dizziness, palpitations, shortness of breath and not feeling well. She thinks she is dehydrated. Initially we noticed that the patient has a high heart rate in the 200s. We immediately placed the patient in a recovery room rn, we obtained 2 IV access, we did an EKG initially showed that the patient is in atrial fibrillation with RVR. However the blood pressure is 70/30. The patient is unstable, however, the patient is alert and oriented 3. I offered the patient cardioversion. However the patient declined. She wants to try medications first and if he doesnt work then she will consent to do the cardioversion. The patient was given 1 liter of fluids and the blood pressure increased to 104 /40 and she was given Cardizem 10 mg. Heart rate is improving to 130 - 150 bpm. I discussed the case with Dr. Motta from cardiology and he also recommends digoxin 0.25 mg. Blood work shows a CBC with a wbcs of 25.6, hemoglobin 6.7 hematocrit 20.0, platelets 436. BUN is 32, glucose 122, calcium is 8.1, magnesium is 1.8, BNP is 194. Total protein is 4.8 albumin is 2.9 and globulin is 1.9. Chest x-ray impression: Post surgical changes. No evidence for acute findings. Patient reports that she doesnt have any rectal bleeding, she hasn t seen any black stool or melena. Patients heart rate is fluctuating between 110 to 140. The patients blood pressure hasnt dropped significantly and actually is improving. Therefore, I placed the patient in the Cardizem drip. I also ordered frequent vital signs as patient every 5-10 minutes. Patients heart rate has decreased and range between 80 and 90 bpm. The blood pressure has improved. The patient reports that she is feeling much better. The patient is a would be receiving 2 units of packed red blood cells to correct the anemia. At this point the patient is hemodynamically stable alert and oriented 3. I discussed the case with Dr. Nelson from the hospitalist services for accepted the patient for admission. - Diagnoses Differential Diagnosis/HQI/PQRI: Anxiety, Coronary Artery Disease, Dysrhythmia, GI Bleed, Myocardial Infarction Provider Diagnoses: Atrial fibrillation with RVR, Symptomatic anemia, Leukocytosis, Hypomagnesemia - Provider Notifications Discussed Care Of Patient With: Jerad Motta - I also spoke with Dr. Nelson , hospitalist, at 11:55. Time Discussed With Above Provider: 10:50 Instructed by Provider To: Other - Requests that patient gets digoxin and blood transfusions, and if there is no improvement, she may need to be shocked. Dr. Nelson accepts the patient for admission at 12:00. Discharge - Sign-Out/Discharge Documenting (check all that apply): Patient Departure - Patient will be admitted to [facility] for further care. - Discharge Plan Condition: Stable Disposition: ADMITTED TO [facility] - Billing Disposition and Condition Condition: STABLE Disposition: Admitted to [facility] Attestations Scribe Attestation: This is eyal Waldron documenting for attending Dr. Andrzej Farooq MD. User Type: Provider with Scribe Provider Attestation: The documentation recorded by the scribe accurately reflects the service I personally performed and the decisions made by me.
[2017-12-10] MEDS ORDERED: Diltiazem IV* 5 MG/ML 5 ML VIAL (for loading dose/IV Push) (25 MG) IV PUSH ONE (10:50)
[2017-12-10] MEDS ORDERED: NS 0.9% 1000 ML* 1,000 ML IV ONE (10:50)
[2017-12-10] MEDS ORDERED: Digoxin IV* 0.5 MG/2 ML AMP (0.25 MG/ML) IV SLOW PU ONE (10:52)
[2017-12-10 11:10] LABS: Hematocrit 20 % (35-47); Hemoglobin 6.7 g/dl (12.0-16.0); Mean Corpuscular HGB Conc 33 g/dl (31-36); Mean Corpuscular Hemoglobin 31 pg (27-31); Mean Corpuscular Volume 95 fL (80-97); Mean Platelet Volume 8.3 um3 (7.4-10.4); Platelet Count 436 10^3/ul (150-450); Red Blood Count 2.15 10^6/ul (4.00-5.40); Red Cell Distribution Width 16 % (10.5-15); White Blood Count 25.6 10^3/ul (3.5-10.8)
[2017-12-10 11:14] LABS: INR 1.08 (0.77-1.02)
[2017-12-10] MEDS ORDERED: Digoxin IV* 0.5 MG/2 ML AMP (0.25 MG/ML) ONE (11:18)
[2017-12-10 11:30] LABS: ABS Basophils 0.1 10^3/ul (0-0.2); ABS Eosinophils 0 10^3/ul (0-0.6); ABS Lymphocytes 0.4 10^3/ul (1.0-4.8); ABS Monocytes 0.1 10^3/ul (0-0.8); ABS Neutrophils 24.9 10^3/ul (1.5-7.7); ABS Nucleated RBC 0 10^3/ul; Eosinophil % 0 % (0-6); Lymphocyte % 1.6 % (25-47); Nucleated Red Blood Cells % 0
--- NOTE | 2017-12-10 11:33 | RAD ---
INDICATION: Dizziness. COMPARISON: There are no prior studies available for comparison. TECHNIQUE: A portable view of the chest was obtained. FINDINGS: The patient is status post sternotomy. The heart is within normal limits in size. The lungs are clear. No pleural effusion is seen. The patient appears to be status post right breast surgery and right axillary node dissection. IMPRESSION: POST SURGICAL CHANGES, NO EVIDENCE FOR ACUTE FINDING.
[2017-12-10] MEDS ORDERED: Magnesium Sulfate 1 GM IV* 1 GM/100 ML BAG IV ONE (11:46)
[2017-12-10] MEDS ORDERED: Diltiazem DRIP* 100 MG/100 ML ADDV.BAG IVPB ONE (11:52)
[2017-12-10] MEDS ORDERED: PROCHLORPERAZINE INJ 5 MG/ML 2 ML VIAL IV PRN (13:23)
[2017-12-10] MEDS ORDERED: Ondansetron INJ* 2 MG/ML VIAL IV PRN (13:23)
[2017-12-10] MEDS ORDERED: Magnesium Sulfate IV* 2 GM in NS 0.9% 100 ML* 100 ML IV ONE (13:29)
[2017-12-10] MEDS ORDERED: NS 0.9% 1000 ML* 1,000 ML IV SCH (13:30)
[2017-12-10] MEDS ORDERED: Diltiazem DRIP* 100 MG/100 ML ADDV.BAG IVPB SCH (14:00)
[2017-12-10] MEDS ORDERED: Magnesium Sulfate 2 GM IV* 2 GM/50 ML BAG IV ONE (14:00)
--- NOTE | 2017-12-10 15:17 | HP ---
HISTORY AND PHYSICAL: DATE OF ADMISSION: 12/10/17 ADDENDUM: PLAN/RECOMMENDATIONS: Anemia: The patient's anemia has worsened since starting on chemotherapy. I suspect that this is likely related to her chemotherapeutic agents. This can all be reviewed with Oncology tomorrow. In the meantime, the patient will need 2 units of packed red blood cells, which are being transfused. Stool occult blood was obtained, but results are not yet available. NANETTE JAMES NP [id number]/[facility] #: [id number] MTDJamil
--- NOTE | 2017-12-10 15:17 | HP ---
CC: Dr. Conner; Dr. Simmons* [facility] MEDICINE HISTORY AND PHYSICAL: DATE OF ADMISSION: 12/10/17 PRIMARY CARE PHYSICIAN: Dr. Conner. ONCOLOGIST: Dr. Simmons. ATTENDING PHYSICIAN: Dr. Jammie Wu* (dictation provided by Shani Dick NP) . CHIEF COMPLAINT: Weakness and rapid heart rate. HISTORY OF PRESENT ILLNESS: Ms. Longo is a 67-year-old female with a recent diagnosis of invasive ductal breast carcinoma, who is currently undergoing chemotherapy, who presents today to the hospital with concern for weakness and rapid heart rate. Ms. Longo was just admitted to our hospital from 12/08/17 through 12/09/17 for complaint of nausea, vomiting, and dehydration. With intravenous fluids and management of her nausea with antiemetics, she was feeling better and was discharged to home yesterday 12/09/17. She reported that she did feel better when she left the hospital yesterday and felt that she would likely be able to care for herself; however, by the evening when she was making herself eggs for dinner, she felt very weak and unsteady on her feet. She felt a little bettervafter she ate, but continued to be very shaky. She slept through the night and when she woke up this morning she felt even worse and now felt that she also had a rapid heart rate. She was able to get around in her home very briefly to feed her cat, etc., but then called EMS to be brought to the hospital. She denies fever. She states that her nausea and vomiting have actually resolved since discharge. She thinks that she had some dark stool yesterday, but has seen no blood in the stool. She denies chest pain , shortness of breath, cough or abdominal pain. In the emergency room, Ms. Longo was confirmed to be in likely rapid atrial fibrillation with a heart rate running about 180 beats per minute. The recommendation was for cardioversion given that her blood pressure was running low at 72/48 on arrival; however, the patient refused cardioversion and was treated instead with intravenous fluids and Cardizem drip. With this, she has had resolution of the atrial fibrillation and is now in sinus rhythm with a heart rate of 100. It was also noted that she had worsening anemia. Yesterday , her white blood cell count was 54.0, today it is 25.6. Yesterday, her hemoglobin was 8.3 and now it is 6.7. She had a normal hemoglobin as of at 14.2 and there has been a slow and steady decline resulting in today's maria del rosario. The remainder of her lab work shows that her potassium is 3.6, her magnesium is 1.8, her lactic acid is 2.6, her troponin is 0.01. PAST MEDICAL HISTORY: 1. History of T2N0 ductal carcinoma, undergoing chemotherapy. 2. History of previous mitral and tricuspid valve repair, with cardiomyopathy, now resolved. 3. History of ESTHER-BSO. 4. History of tubal ligation. 5. History of tonsillectomy. 6. History of appendectomy. 7. History of hypertension. 8. History of hyperlipidemia. 9. History of depression. MEDICATIONS: 1. Bupropion SR 150 mg p.o. q.a.m. 2. Simvastatin 10 mg p.o. at bedtime. 3. Compazine 10 mg p.o. q.6 hours p.r.n. 4. Ondansetron 4 mg p.o. q.4 hours p.r.n. 5. Naproxen 500 mg p.o. daily p.r.n. 6. Multivitamin with minerals 1 tab p.o. q.a.m. 7. Metoprolol succinate 25 mg p.o. b.i.d. 8. Aspirin 81 mg p.o. q.p.m. ALLERGIES: No known drug allergies. FAMILY HISTORY: Positive for heart disease. SOCIAL HISTORY: The patient lives alone at [facility]. She is a former smoker and quit in 2007, but does have approximately a 40-[id number]-[id number] history. She drinks 1 glass of wine with dinner. She denies any other substances. She states her sister would be the healthcare proxy. REVIEW OF SYSTEMS: A 14-point review of systems was completed with Ms. Longo and all those not mentioned above were negative. PHYSICAL EXAMINATION GENERAL: Ms. Longo is lying in the bed. She states she feels better than on arrival and she is in no acute distress. VITAL SIGNS: Temperature 97.0, pulse rate 94, respiratory rate 24, O2 saturation 90%on room air, blood pressure 105/46. LUNGS: Clear to auscultation bilaterally with no accessory muscle use and good aeration. HEART: S1, S2. No murmur, rub or gallop and regular. ABDOMEN: Soft, nontender with bowel sounds positive x4. EXTREMITIES: No cyanosis. No edema. NEURO: She is alert. She is oriented x3. She moves all extremities equally. There is no facial asymmetry or focal weakness. Extraocular movements are intact. SKIN: Intact. DIAGNOSTIC STUDIES/LAB DATA: Sodium 137, potassium 3.6, chloride 108, serum bicarbonate 22, BUN 32, creatinine was 0.74, glucose 122, lactic acid 2.6, magnesium 1.8. Troponin 0.01. BNP 194. Albumin 2.9. TSH 2.98. WBC 25.6, hemoglobin 6.7, hematocrit 20, platelet count 436. INR 1.08. Chest x-ray shows no acute process. EKG shows rapid heart rate with atrial fibrillation with a heart rate of about 180. ASSESSMENT AND PLAN: Ms. Longo is a 67-year-old female with a past medical history of recent diagnosis of breast cancer with ductal carcinoma, undergoing chemotherapy, who presents to the hospital today with weakness and rapid heart rate, found to be in rapid atrial fibrillation. Our plans are for inpatient admission as I expect her length of stay to be greater than 2 days for the followin. Rapid atrial fibrillation. The patient's heart rate is now controlled. I think that her rapid atrial fibrillation was likely precipitated by her anemia and electrolyte abnormalities with recent nausea and vomiting. Plan to transfuse 2 units of packed red blood cells now. She will have intravenous fluids as well. Plan to repeat potassium and magnesium with recheck in the a.m. Plan to continue diltiazem drip now and once her anemia and electrolyte abnormalities have been corrected, we will consider transitioning over to oral Cardizem low dose or increasing her metoprolol. Given the patient's anemia, she is not a candidate for anticoagulation at this time for stroke prevention, but this could be considered, as based on her age, female gender and hypertension, she would qualify for anticoagulation. 2. Weakness. I think this is secondary to her chemotherapy, her nausea, vomiting and now with rapid atrial fibrillation. She states she is feeling better now that her rapid atrial fibrillation has resolved. Plan to replete electrolytes and to treat any nausea and vomiting with antiemetics. She will also have IV hydration. She will have a regular diet. 3. Anemia: The patient's anemia has worsened since starting on chemotherapy. I suspect that this is likely related to her chemotherapeutic agents. This will be reviewed with Oncology tomorrow. In the meantime, the patient will need 2 units of packed red blood cells, which are being transfused. Patient may also have a GI bleed. The stool occult blood was obtained, but results are not yet available. 4. Hypertension. Continue metoprolol. 5. Depression. Continue bupropion. 6. Breast cancer. Continue treatment per oncology team. 7. Code status is full code. TIME SPENT: Approximately 60 minutes was spent on the admission of this patient , more than half time was spent with her at the bedside reviewing the events leading up to this hospitalization, performing the physical examination, and reviewing my plan of care. TONY MAST
[2017-12-10] MEDS: NS 0.9% w/ 40 Meq KCL 1000 ML* 1,000 ML IV SCH (15:39)
[2017-12-10] MEDS: KCL 20 MEQ/100 ML IVPREMIX* 20 MEQ/100 ML BAG IV SCH ×2 (16:59→20:43)
[2017-12-10] MEDS ORDERED: Metoprolol Succinate XL TAB* 25 MG PO SCH ×2 (20:00→21:00)
[2017-12-10] MEDS: Atorvastatin* 10 MG TAB PO SCH (21:16)
[2017-12-10] MEDS: Metoprolol Succinate XL TAB* 25 MG PO SCH (23:41)
[2017-12-11] MEDS: NS 0.9% w/ 40 Meq KCL 1000 ML* 1,000 ML IV SCH (03:47)
[2017-12-11] MEDS ORDERED: Melatonin (NF) ** ENTER STRENGTH IN LABEL DIRECTIONS PO PRN (04:29)
[2017-12-11] MEDS ORDERED: Melatonin 3 MG TAB PO ONE (04:45)
[2017-12-11] MEDS ORDERED: Melatonin 3 MG TAB PO PRN (05:21)
[2017-12-11 06:13] LABS: ABS Basophils 0 10^3/ul (0-0.2); ABS Eosinophils 0 10^3/ul (0-0.6); ABS Lymphocytes 0.3 10^3/ul (1.0-4.8); ABS Monocytes 0.1 10^3/ul (0-0.8); ABS Neutrophils 3.4 10^3/ul (1.5-7.7); ABS Nucleated RBC 0 10^3/ul; Eosinophil % 0.4 % (0-6); Hematocrit 34 % (35-47); Hemoglobin 11.3 g/dl (12.0-16.0); Lymphocyte % 6.8 % (25-47); Mean Corpuscular HGB Conc 33 g/dl (31-36); Mean Corpuscular Hemoglobin 29 pg (27-31); Mean Corpuscular Volume 89 fL (80-97); Mean Platelet Volume 8.5 um3 (7.4-10.4); Nucleated Red Blood Cells % 0; Platelet Count 154 10^3/ul (150-450); Red Blood Count 3.84 10^6/ul (4.00-5.40); Red Cell Distribution Width 16 % (10.5-15); White Blood Count 3.8 10^3/ul (3.5-10.8)
[2017-12-11 06:33] LABS: EGFR Non-African American 41.1 (>60)
[2017-12-11 07:03] LABS: Urine Appearance Clear; Urine Blood 2+ (Negative); Urine Color Straw; Urine Ketones Negative (Negative); Urine Protein Negative (Negative); Urine Red Blood Cell Trace(0-2/hpf) (Absent); Urine Specific Gravity 1.008 (1.010-1.030); Urine Urobilinogen Negative (Negative); Urine White Blood Cell 1+(6-10/hpf) (Absent)
[2017-12-11] MEDS: buPROPion SR TAB.SR* 150 MG PO SCH (09:02)
[2017-12-11] MEDS: Metoprolol Succinate XL TAB* 25 MG PO SCH (11:32)
--- NOTE | 2017-12-11 11:35 | PN ---
Progress Note - Progress Note Date of Service: 12/11/17 SOAP: Subjective: []Feeling better today. No chest pain or pressure. No further palpitations. On beta uqique @ home d/t hx. palpitations, per Dr. Spicer. No myalgias at this time, however was using naproxen 500 mg PO qday up until approx. 8/10 d/t S/E from chemo - to note also on steroids with chemo tx. Loose stool this AM. Medications: Atorvastatin Calcium (Lipitor*) 5 mg PO BEDTIME [facility] Last Admin: 12/10/17 21:16 Dose: 5 mg Bupropion HCl (Wellbutrin Sr Tab*) 150 mg PO QAM [facility] Last Admin: 12/11/17 09:02 Dose: 150 mg Melatonin (Melatonin) 3 mg PO BEDTIME PRN PRN Reason: SLEEP Metoprolol Succinate (Toprol Xl Tab*) 25 mg PO Q12H [facility] Last Admin: 12/10/17 23:41 Dose: 25 mg Ondansetron HCl (Zofran Inj*) 4 mg IV Q6H PRN PRN Reason: NAUSEA Prochlorperazine Edisylate (Compazine Inj*) 5 mg IV Q6H PRN PRN Reason: NAUSEA/VOMITING Last Admin: 12/10/17 17:26 Dose: 5 mg Objective: [] Vital Signs Temp Pulse Resp BP Pulse Ox 97.8 F 79 18 124/47 94 12/11/17 07:28 12/11/17 07:28 12/11/17 07:28 12/11/17 07:28 12/11/17 07:28 A&Ox3, EOMI, neuro grossly non-focal MCDANIEL, no obvious deformities HRR, S1S2 present, SR on tele LS clear bilat. throughout Laboratory Results - last 24 hr 12/10/17 12/10/17 12/10/17 10:57 10:57 10:57 WBC RBC Hgb Hct MCV MCH MCHC RDW Plt Count MPV Neut % (Auto) 97.4 H Lymph % (Auto) 1.6 L Keith % (Auto) 0.5 Eos % (Auto) 0 Baso % (Auto) 0.5 Absolute Neuts (auto) 24.9 H Absolute Lymphs (auto) 0.4 L Absolute Monos (auto) 0.1 Absolute Eos (auto) 0 Absolute Basos (auto) 0.1 Absolute Nucleated RBC 0 Nucleated RBC % 0 Sodium 137 Potassium 3.6 Chloride 108 Carbon Dioxide 22 Anion Gap 7 BUN 32 H Creatinine 0.74 Est GFR ( Amer) 94.4 Est GFR (Non-Af Amer) 78.0 BUN/Creatinine Ratio 43.2 H Glucose 122 H Lactic Acid 2.6 H* Calcium 8.1 L Magnesium 1.8 L Total Bilirubin 0.40 AST 13 ALT 12 Alkaline Phosphatase 78 Total Creatine Kinase 14 CK-MB (CK-2) 3.2 Troponin I 0.01 B-Natriuretic Peptide Total Protein 4.8 L Albumin 2.9 L Globulin 1.9 L Albumin/Globulin Ratio 1.5 TSH 2.98 Urine Color Urine Appearance Urine pH Ur Specific [place] Urine Protein Urine Ketones Urine Blood Urine Nitrate Urine Bilirubin Urine Urobilinogen Ur Leukocyte Esterase Urine WBC (Auto) Urine RBC (Auto) Ur Squamous Epith Cells Urine Bacteria Urine Glucose Blood Type Antibody Screen Crossmatch 12/10/17 12/10/17 12/11/17 10:57 10:57 05:45 WBC 3.8 RBC 3.84 L Hgb 11.3 L Hct 34 L MCV 89 MCH 29 MCHC 33 RDW 16 H Plt Count 154 MPV 8.5 Neut % (Auto) 90.5 H Lymph % (Auto) 6.8 L Keith % (Auto) 1.6 Eos % (Auto) 0.4 Baso % (Auto) 0.7 Absolute Neuts (auto) 3.4 Absolute Lymphs (auto) 0.3 L Absolute Monos (auto) 0.1 Absolute Eos (auto) 0 Absolute Basos (auto) 0 Absolute Nucleated RBC 0 Nucleated RBC % 0 Sodium Potassium Chloride Carbon Dioxide Anion Gap BUN Creatinine Est GFR ( Amer) Est GFR (Non-Af Amer) BUN/Creatinine Ratio Glucose Lactic Acid Calcium Magnesium Total Bilirubin AST ALT Alkaline Phosphatase Total Creatine Kinase CK-MB (CK-2) Troponin I B-Natriuretic Peptide 194 H Total Protein Albumin Globulin Albumin/Globulin Ratio TSH Urine Color Urine Appearance Urine pH Ur Specific [place] Urine Protein Urine Ketones Urine Blood Urine Nitrate Urine Bilirubin Urine Urobilinogen Ur Leukocyte Esterase Urine WBC (Auto) Urine RBC (Auto) Ur Squamous Epith Cells Urine Bacteria Urine Glucose Blood Type B Positive Antibody Screen Negative Crossmatch See Detail 12/11/17 12/11/17 05:45 06:15 WBC RBC Hgb Hct MCV MCH MCHC RDW Plt Count MPV Neut % (Auto) Lymph % (Auto) Keith % (Auto) Eos % (Auto) Baso % (Auto) Absolute Neuts (auto) Absolute Lymphs (auto) Absolute Monos (auto) Absolute Eos (auto) Absolute Basos (auto) Absolute Nucleated RBC Nucleated RBC % Sodium 134 L Potassium 5.3 H D Chloride 101 Carbon Dioxide 28 Anion Gap 5 BUN 30 H Creatinine 1.29 H Est GFR ( Amer) 49.7 Est GFR (Non-Af Amer) 41.1 BUN/Creatinine Ratio 23.3 H Glucose 375 H Lactic Acid Calcium 8.6 Magnesium 2.2 Total Bilirubin AST ALT Alkaline Phosphatase Total Creatine Kinase CK-MB (CK-2) Troponin I B-Natriuretic Peptide Total Protein Albumin Globulin Albumin/Globulin Ratio TSH Urine Color Straw Urine Appearance Clear Urine pH 5.0 Ur Specific [place] 1.008 L Urine Protein Negative Urine Ketones Negative Urine Blood 2+ A Urine Nitrate Negative Urine Bilirubin Negative Urine Urobilinogen Negative Ur Leukocyte Esterase 2+ A Urine WBC (Auto) 1+(6-10/hpf) A Urine RBC (Auto) Trace(0-2/hpf) Ur Squamous Epith Cells Present A Urine Bacteria 1+ A Urine Glucose Negative Blood Type Antibody Screen Crossmatch Assessment: []67 yo female with early stage breast cancer s/p C3 (12/06/17) TC with 20% dose reduction admitted 12/08 for 24 hour hydration d/t significant nausea with marked improvement and then presentation yesterday in rapid A.Fib and anemia with positive stool occult blood. Plan: []1. A.Fib: appears resolved, on beta quique - echo pending, cont. to follow tele - at this time will consider outpatient cardiology f/u unless indication for inpt. arises. 2. GI Bleed: daily stool for occult blood, recheck CBC this afternoon - if evidence for cont.'d bleed will consult GI - start oral PPI, avoid NSAIDs 3. Acute Renal Injury: unclear process, repeat labs this afternoon, but hold off on fluids for now to evaluate electrolytes - enc. good PO intake 4. Hyperkalemia: 2/2 replacement, with A.Fib goal of maintain btw. 4.5-5 - d/c fluids and recheck electrolytes this afternoon 5. Diarrhea: likely r/t taxane tx., add imodium PRN Inpt. for cont.'d cardiac monitoring and evaluation of GI Bleed
[2017-12-11] MEDS ORDERED: Loperamide CAP* 2 MG PO PRN (11:36)
[2017-12-11] MEDS: Omeprazole CAP* 20 MG PO SCH (12:21)
[2017-12-11 14:02] LABS: Hematocrit 27 % (35-47); Mean Corpuscular HGB Conc 34 g/dl (31-36); Mean Corpuscular Hemoglobin 31 pg (27-31); Mean Corpuscular Volume 91 fL (80-97); Mean Platelet Volume 8.3 um3 (7.4-10.4); Platelet Count 315 10^3/ul (150-450); Red Blood Count 2.92 10^6/ul (4.00-5.40); Red Cell Distribution Width 16 % (10.5-15); White Blood Count 8.6 10^3/ul (3.5-10.8)
[2017-12-11 14:07] LABS: ABS Basophils 0.1 10^3/ul (0-0.2); ABS Eosinophils 0.2 10^3/ul (0-0.6); ABS Lymphocytes 0.8 10^3/ul (1.0-4.8); ABS Monocytes 0.2 10^3/ul (0-0.8); ABS Neutrophils 7.3 10^3/ul (1.5-7.7)
[2017-12-11 14:43] LABS: ABS Basophils 0 10^3/ul (0-0.2); ABS Neutrophils 6.5 10^3/ul (1.5-7.7); Monocytes % 5 % (0-7)
[2017-12-11 14:46] LABS: EGFR Non-African American 83.2 (>60)
--- NOTE | 2017-12-11 14:49 | ECHO ---
Patient: HENRY AGUAYO [facility] Rec#: [id number] : 1950 Date: 12/11/2017 Age: 67y Weight: kg / NaN lbs Sex: F Room#: [facility] Admit Date#: 12/10/2017 Type: Inpatient Referring: Shani Dick NP Reading: Rico Calderon MD Reel Hooker: Adele Cancino RDCS CC: Lonnie Catalan MD Transthoracic Echocardiogram Indication: Abn EKG BP: 102/48 HR: 84 Rhythm: NSR Findings History: Right breast cancer with chemotherapy currently, s/p MV and TV repair,former smoker. Technical Comments: The study is technically limited due to poor apical windows. Completed at 0850. The study is technically limited due to the patient's smoking history. Left Ventricle: The left ventricular chamber size is normal. Global left ventricular wall motion and contractility are within normal limits. There is normal left ventricular systolic function. The estimated ejection fraction is 55-60%. Post surgical hypokinesis of the interventricular septum is observed consistent with valve replacement. Abnormal left ventricular diastolic function is observed. Left Atrium: The left atrium is mildly dilated. Right Ventricle: The right ventricular global systolic function is normal. The septum has abnormal paradoxical motion consistent with post-operative pressure. Right Atrium: The right atrial cavity size is normal. Aortic Valve: The aortic valve is trileaflet. There is no evidence of aortic valve thickening. There is no evidence of aortic regurgitation. There is no evidence of aortic stenosis. Mitral Valve: There is no evidence of mitral stenosis. Mitral valve repair functioning normally. Tricuspid Valve: Tricuspid valve repair is functioning normally. Pulmonic Valve: The pulmonic valve structure is not well visualized. Pericardium: The pericardium appears normal. Aorta: The ascending aorta is not well visualized. There is no dilation of the aortic root. Pulmonary Artery: The main pulmonary artery is not well visualized. Venous: The inferior vena cava appears normal in size. There is a greater than 50% respiratory change in the inferior vena cava dimension. Conclusions Global left ventricular wall motion and contractility are within normal limits. There is normal left ventricular systolic function. The estimated ejection fraction is 55-60%. Post surgical hypokinesis of the interventricular septum is observed consistent with valve replacement. The septum has abnormal paradoxical motion consistent with post-operative pressure. There is no evidence of aortic regurgitation. There is no evidence of aortic stenosis. Mitral valve repair functioning normally. Tricuspid valve repair is functioning normally. The pericardium appears normal. Compared to ACE from 10/2016, there is little change Measurements Name Value Normal Range RVIDd (AP) 2D 2.4 cm (0.9 - 2.6) RVDdMajor (2D) 3 cm (2.2 - 4.4) RAd ISD 4CH 4.5 cm (3.4 - 4.9) RA (A4C)W 3.9 cm (2.9 - 4.6) IVSd (2D) 0.6 cm (0.6 - 1) LVPWd (2D) 0.9 cm (0.6 - 1) LVIDd (2D) 4.4 cm (3.6 - 5.4) LVIDs (2D) 3.3 cm - LV FS (2D) 25 % (25 - 45) Aortic Annulus 1.5 cm (1.4 - 2.6) Ao root diameter (2D) 2.2 cm (2.1 - 3.5) LA dimension (AP) 2D 4.3 cm (2.3 - 3.8) LAd ISD 4CH 5.7 cm (2.9 - 5.3) LA ISD 4CH W 4.2 cm (2.5 - 4.5) Name Value Normal Range MV E-wave Vmax 2.2 m/sec - MV deceleration time 298 msec - MV A-wave Vmax 1.4 m/sec - MV E:A ratio 1.6 ratio - LV lateral e' Vmax 0.06 m/sec - Name Value Normal Range AV Vmax 1.2 m/sec - AV VTI 24.3 cm - AV peak gradient 6 mmHg - AV mean gradient 2 mmHg - LVOT diameter 1.7 cm - LVOT Vmax 1.1 m/sec - LVOT VTI 20.2 cm - LVOT peak gradient 5 mmHg - LVOT mean gradient 2 mmHg - Name Value Normal Range MV Vmax 2.2 m/sec - MV VTI 62.1 cm - MV peak gradient 19 mmHg - MV mean gradient 7 mmHg - MV PHT 88 msec - MVA (PHT) 2.5 cm2 - MVA (continuity VTI) 0.7 cm2 - Name Value Normal Range PV Vmax 0.8 m/sec - PV peak gradient 2 mmHg -
[2017-12-11 18:24] LABS: Hematocrit 27 % (35-47); Hemoglobin 9.4 g/dl (12.0-16.0); Mean Corpuscular HGB Conc 35 g/dl (31-36); Mean Corpuscular Hemoglobin 31 pg (27-31); Mean Corpuscular Volume 90 fL (80-97); Mean Platelet Volume 8.5 um3 (7.4-10.4); Platelet Count 358 10^3/ul (150-450); Red Blood Count 3.03 10^6/ul (4.00-5.40); Red Cell Distribution Width 15 % (10.5-15); White Blood Count 7.6 10^3/ul (3.5-10.8)
[2017-12-11 18:53] LABS: ABS Basophils 0.1 10^3/ul (0-0.2); ABS Eosinophils 0.2 10^3/ul (0-0.6); ABS Lymphocytes 1.1 10^3/ul (1.0-4.8); ABS Monocytes 0.4 10^3/ul (0-0.8); ABS Neutrophils 5.9 10^3/ul (1.5-7.7)
[2017-12-11] MEDS: Atorvastatin* 10 MG TAB PO SCH (21:03)
[2017-12-11 22:20] LABS: Hematocrit 27 % (35-47); Hemoglobin 9.2 g/dl (12.0-16.0); Mean Corpuscular HGB Conc 35 g/dl (31-36); Mean Corpuscular Hemoglobin 31 pg (27-31); Mean Corpuscular Volume 90 fL (80-97); Mean Platelet Volume 7.7 um3 (7.4-10.4); Platelet Count 332 10^3/ul (150-450); Red Blood Count 2.97 10^6/ul (4.00-5.40); Red Cell Distribution Width 15 % (10.5-15); White Blood Count 6.1 10^3/ul (3.5-10.8)
[2017-12-12] MEDS: Metoprolol Succinate XL TAB* 25 MG PO SCH ×3 (00:26→23:08)
[2017-12-12 00:53] LABS: ABS Basophils 0.1 10^3/ul (0-0.2); ABS Eosinophils 0.3 10^3/ul (0-0.6); ABS Lymphocytes 1.4 10^3/ul (1.0-4.8); ABS Monocytes 0.5 10^3/ul (0-0.8); ABS Neutrophils 3.9 10^3/ul (1.5-7.7); ABS Nucleated RBC 0 10^3/ul; Eosinophil % 4.4 % (0-6); Lymphocyte % 22.2 % (25-47); Nucleated Red Blood Cells % 0
[2017-12-12 02:34] LABS: Hematocrit 28 % (35-47); Hemoglobin 9.7 g/dl (12.0-16.0); Mean Corpuscular HGB Conc 34 g/dl (31-36); Mean Corpuscular Hemoglobin 31 pg (27-31); Mean Corpuscular Volume 90 fL (80-97); Mean Platelet Volume 8.3 um3 (7.4-10.4); Platelet Count 356 10^3/ul (150-450); Red Blood Count 3.16 10^6/ul (4.00-5.40); Red Cell Distribution Width 15 % (10.5-15); White Blood Count 6.7 10^3/ul (3.5-10.8)
[2017-12-12 02:54] LABS: ABS Neutrophils 4.1 10^3/ul (1.5-7.7)
[2017-12-12] MEDS: Omeprazole CAP* 20 MG PO SCH (05:24)
[2017-12-12] MEDS: buPROPion SR TAB.SR* 150 MG PO SCH (08:32)
--- NOTE | 2017-12-12 17:10 | CONS ---
CC: Dr. Simmons; Dr. Wu; Dr. Fanta Mckeon; Dr. Conner GASTROENTEROLOGY CONSULTATION: DATE OF CONSULT: HOSPITAL PROVIDER: Jammie Wu MD PRIMARY CARE PHYSICIAN: Dr. Conner. ONCOLOGIST: Dr. Simmons. REASON FOR CONSULT: Acute blood loss anemia. HISTORY OF PRESENT ILLNESS: Ms. Longo is a very pleasant 67-year-old female with a recent diagnosis of invasive ductal breast carcinoma, who is undergoing chemotherapy. She presented to [facility] Emergency Room with weakness and was noted to have atrial fibrillation. She was admitted for further evaluation and treatment. Gastroenterology was consulted for anemia. The patient was noted to have a hemoglobin of 6.7 and has been transfused 2 units of packed red blood cells. She denies bright red blood per rectum; however , a few days prior to admission to the emergency room she did have an episode of black tarry stool. She denies any use of Pepto-Bismol, but does take NSAIDs as needed for chronic aches and pains about once or twice a month. She denies abdominal pain, dyspepsia, heartburn, dysphagia, odynophagia. She denies a previous history of an endoscopy. She did have a colonoscopy back on 07/24/14 with one very small polyp, but was otherwise normal to the terminal ileum. She states she feels much better since receiving 2 units of packed red blood cells. She denies shortness of breath or chest pain. Her atrial fibrillation is back into normal sinus rhythm, hence Gastroenterology was consulted for upper endoscopy. PAST MEDICAL HISTORY: 1. Invasive ductal breast carcinoma, undergoing chemotherapy. 2. Cardiomyopathy. 3. Hypertension. 4. Hyperlipidemia. 5. Depression. PAST SURGICAL HISTORY: 1. Mitral and tricuspid valve repair. 2. Total abdominal hysterectomy with bilateral salpingo-oophorectomy. 3. Tubal ligation. 4. Tonsillectomy. 5. Appendectomy. MEDICATIONS: 1. Bupropion SR. 2. Simvastatin. 3. Compazine. 4. Ondansetron. 5. Naproxen 500 mg daily as needed. 6. Multivitamin with minerals. 7. Metoprolol succinate. 8. Aspirin 81 mg daily. ALLERGIES: No known drug allergies. FAMILY HISTORY: Denies history of gastrointestinal malignancies. SOCIAL HISTORY: She is a former smoker, quit in 2007, has a 60-pack year history. Drinks 1 glass of wine with dinner. Denies illicit drug use. REVIEW OF SYSTEMS: Review of systems on a 14-point scale has been reviewed. All pertinent positives and negatives have been noted above in the HPI. PHYSICAL EXAM: Vital Signs: Temperature 97.7, heart rate 86, respirations 18, 95% on room air, blood pressure 96/34. Generally, the patient is alert and oriented x3, in no acute distress, pale appearing. HEENT: Normocephalic, atraumatic. Extraocular muscles intact. Anicteric sclerae bilaterally. Cardiovascular Exam: Regular rate and rhythm. Pulmonary: Clear to auscultation bilaterally. Abdomen: Soft, nontender, nondistended. No rebound, guarding, or rigidity. Positive bowel sounds are appreciated in all 4 quadrants. Extremities: No clubbing, cyanosis, or edema. Neurological: No gross focal deficits are appreciated. DIAGNOSTIC STUDIES/LAB DATA: Includes WBC 6.7, hemoglobin 9.7, hematocrit 28, platelets 356. Sodium 133, potassium 5.1, chloride 108, CO2 22, anion gap 3, BUN 13, creatinine 0.70, calcium 8.2, magnesium 2.2. Total bilirubin 0.6, AST 28, ALT 27, alkaline phosphatase 88. Total protein 4.6. ASSESSMENT AND PLAN: Ms. Longo is a 67-year-old female with a recent diagnosis of invasive ductal breast carcinoma, who is currently undergoing chemotherapy. She initially presented to [facility] with weakness and atrial fibrillation. She is now in normal sinus rhythm. She was noted to have a low hemoglobin of 6.7 while admitted in the hospital and one episode of black tarry stool a few days prior to admission. She admits to using naproxen every now and then for chronic aches and pains. She is on a baby aspirin daily. She denies prior history of endoscopy. She has been given 2 units of packed red blood cells and currently her hemoglobin has remained stable at 9.7. She has had no further episodes of bleeding. She is currently on PPI 20 mg daily. Gastroenterology was consulted for further evaluation. Given the patient's current acute blood loss anemia associated with an episode of melena and NSAID use, she most definitely warrants an upper endoscopy to rule out peptic ulcer disease. She ate this morning; therefore, we will perform the upper endoscopy tomorrow to further evaluate. Further recommendations will be provided as the patient's clinical course progresses. Thank you, Dr. Simmons and Dr. Wu, for allowing us to participate in the care of your patient. If you should have any further questions or concerns, please do not hesitate to contact us. [id number]/[facility] #: [id number] LATA
[2017-12-12] MEDS ORDERED: NS 0.9% 500 ML* 500 ML IV ONE (17:33)
[2017-12-12 18:19] LABS: EGFR Non-African American 68.4 (>60)
[2017-12-12] MEDS: Atorvastatin* 10 MG TAB PO SCH (20:45)
[2017-12-13 06:10] LABS: Hematocrit 29 % (35-47); Hemoglobin 9.6 g/dl (12.0-16.0); Mean Corpuscular HGB Conc 34 g/dl (31-36); Mean Corpuscular Hemoglobin 30 pg (27-31); Mean Corpuscular Volume 90 fL (80-97); Mean Platelet Volume 8.5 um3 (7.4-10.4); Platelet Count 376 10^3/ul (150-450); Red Blood Count 3.18 10^6/ul (4.00-5.40); Red Cell Distribution Width 15 % (10.5-15); White Blood Count 26.2 10^3/ul (3.5-10.8)
[2017-12-13 06:19] LABS: EGFR Non-African American 69.3 (>60)
[2017-12-13 07:14] LABS: ABS Basophils 0 10^3/ul (0-0.2); ABS Neutrophils 12.6 10^3/ul (1.5-7.7); ABS Neutrophils 23.4 10^3/ul (1.5-7.7); Monocytes % 5 % (0-7)
[2017-12-13] MEDS ORDERED: fentaNYL* 50 MCG/ML 2 ML VIAL (100 MCG VIAL) ONE (09:51)
[2017-12-13] MEDS ORDERED: Midazolam* 1 MG/ML 5 ML VIAL (5 MG) ONE ×2 (09:51→10:04)
[2017-12-13] MEDS ORDERED: Ondansetron INJ* 2 MG/ML VIAL ONE (10:04)
[2017-12-13] MEDS: Metoprolol Succinate XL TAB* 25 MG PO SCH (11:11)
[2017-12-13] MEDS: buPROPion SR TAB.SR* 150 MG PO SCH (11:11)
[2017-12-13] MEDS: Omeprazole CAP* 20 MG PO SCH (11:11)
[2017-12-13 12:28] VITALS: BP 107/42
--- NOTE | 2017-12-13 17:35 | PRO ---
CC: Dr. Conner; Dr. Diehl; Dr. Simmons; Dr. Jammie Wu; Dr. Fanta Mckeon. GASTROENTEROLOGY OPERATIVE REPORT: DATE OF PROCEDURE: 12/10/17 OPERATIVE PROCEDURE: Esophagogastroduodenoscopy to third portion of duodenum. DETENTION OFFICER: Fanta Mckeon DO ANESTHESIA: 1. Midazolam 4 mg IV. 2. Fentanyl 37.5 mcg IV. OTHER MEDICATIONS: 1. Zofran 2 mg IV. HISTORY OF PRESENT ILLNESS: Bertha is a pleasant 67-year-old female who presents today with newly diagnosed breast cancer undergoing chemotherapy. She presented to [facility] with a hemoglobin of 6.7 and one episode of melena. She has a history of NSAID use. PREOPERATIVE DIAGNOSES: 1. Acute blood loss anemia. 2. Melena. 3. History of nonsteroidal anti-inflammatory drug use. 4. Newly diagnosed breast cancer undergoing chemotherapy. POSTOPERATIVE DIAGNOSES: 1. Normal-appearing duodenum to the third portion with biopsies to rule out celiac disease. 2. One large nonbleeding cratered duodenal ulcer with 2 smaller nonbleeding cratered duodenal ulcers with CLOtest to rule out Helicobacter pylori. 3. A 3 cm hiatal hernia. 4. Irregular appearing Z-line at 39 cm from the incisors with biopsies. 5. Normal mid and proximal esophagus. RECOMMENDATIONS: 1. We will follow up with biopsy results and CLOtest. 2. The patient should be started on pantoprazole therapy 40 mg twice daily for 6 weeks, then once daily. 3. The patient will need a repeat upper endoscopy to check healing for gastric ulcers in 6 to 8 weeks. 4. Findings were discussed with Dr. Diehl. DESCRIPTION OF PROCEDURE: Esophagogastroduodenoscopy was explained in detail to the patient. The risks, benefits, complications, alternatives, and possibilities of missed lesions were explained and understood. Complications included, but were not limited to, reaction to anesthesia, aspiration, increased risk of bleeding, infection and perforation. All questions were answered. The patient demonstrated understanding of the conversation. Informed consent was obtained. Next, the patient was brought to the endoscopy suite, placed in the left lateral recumbent position while blood pressure, cardiac, and oxygen monitors were applied. The patient was found to be a fit candidate for moderate anesthesia. After adequate IV sedation was achieved, a bite-block was placed. Next, a standard adult Olympus endoscope was inserted per os under direct visualization to the first, second and third portion of the duodenum. These areas were grossly unremarkable. Cold forceps biopsies were obtained to rule out celiac disease. Further withdrawal of the endoscope into the gastric lumen revealed 3 cratered ulcers, one was large in size to approximately 8-mm, the others were slightly smaller to 4 to 6-mm. No active bleeding was seen. No previous stigmata of bleeding was seen. On retroflexion, the patient has slightly loose gastric cardia sling. The rest of the gastric lumen was normal- appearing. Further withdrawal of the endoscope into the distal esophagus revealed a 3-cm hiatal hernia from 42 cm to 39 cm from the incisors and an irregular-appearing Z-line was noted at 39 cm from the incisors. Cold forceps biopsies were obtained from this area. The rest of the tubular esophagus was normal-appearing. Air was then removed from the patient. Endoscope was removed from the patient. The patient tolerated the procedure well. There were no immediate complications. 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 Thank you, Dr. Diehl for allowing us to participate in the care of your patient. If you should have any further questions or concerns, please do not hesitate to contact us. [id number]/[facility] #: [id number] LATA
--- NOTE | 2017-12-14 14:17 | DS ---
CC: Dr. Conner; [facility]; Dr. Simmons* DISCHARGE SUMMARY: DATE OF ADMISSION: 12/10/17 DATE OF DISCHARGE: 12/13/17 PRIMARY CARE PROVIDER: Dr. Sandee Conner PRIMARY ONCOLOGIST: Dr. Mark Simmons ATTENDING PHYSICIAN: Dr. Los Diehl* (dictated by GRICELDA Sims). ON LINE CSR: Dr. Fanta Mckeon DISCHARGING PROVIDER: GRICELDA Sims PRIMARY DISCHARGE DIAGNOSES: 1. Rapid atrial fibrillation in the setting of severe anemia. 2. Acute blood loss anemia secondary to GI bleed. 3. GI bleed due to gastric ulceration. 4. Limited stage breast cancer, status post cycle 3 of TC chemotherapy. DISCHARGE MEDICATIONS: 1. Wellbutrin 150 mg p.o. daily. 2. Metoprolol tartrate 25 mg p.o. twice daily. 3. Multivitamin 1 tablet p.o. daily. 4. Zofran 4 mg p.o. q.4 hours as needed for nausea and vomiting. 5. Compazine 10 mg p.o. q.6 hours as needed for nausea and vomiting. 6. Simvastatin 10 mg p.o. at bedtime. 7. Ferrous gluconate 324 mg p.o. daily. 8. Pantoprazole 40 mg p.o. twice daily. Medication changes: 1. Stop aspirin. 2. Stop naproxen. 3. Start ferrous gluconate. 4. Start Protonix. HOSPITAL IMAGIN. Chest x-ray shows no acute findings. 2. Echocardiogram shows a normal-appearing left ventricle with an EF of 55% to 60% with some diastolic dysfunction. No significant valvular abnormalities. 3. EGD shows 1 large duodenal ulcer with 2 smaller accompanying duodenal ulcers without evidence of current bleeding. HOSPITAL COURSE: This is a 67-year-old female completing adjuvant chemotherapy for breast cancer, recently completed her third cycle of TC and was seen in the office with complaints of intractable nausea and vomiting. She required observation and admission for hydration and antiemetic support and was discharged the following day doing quite well. She then returned with complaints of palpitations and found to be in rapid atrial fibrillation and profoundly anemic with a hemoglobin of 6.7 g/dL. She was transfused 2 units of packed red blood cells and she spontaneously converted to sinus rhythm. Two of three stool cards were positive for occult blood. The patient underwent upper endoscopy with Dr. Mckeon, which demonstrated 3 duodenal ulcers, none of which were actively bleeding. The patient had been started on PPI therapy and her hemoglobin remained stable following admission. She had no additional episodes of atrial fibrillation or other significant cardiac dysrhythmias. At the time of discharge, the patient was asymptomatic. She was counseled against NSAIDs and recommended to discontinue her aspirin, no cardiac indication noted. DISPOSITION: Followup plan: The patient is being discharged to home with medications as listed above including twice daily PPI therapy and discontinuation of her aspirin and NSAIDs. Recommendation has been made by Dr. Mckeon to repeat upper endoscopy in approximately 6 weeks. Followup has been arranged on her behalf with [facility]. She will follow up with Dr. Simmons prior to cycle 4. The patient was started on ferrous gluconate for iron store repletion as well. GRICELDA SIMS [id number]/[facility] #: [id number] LATA
== END 2017-12-13 15:00 | disposition home or self-care (01) | DRG 308 ==
LOC: ED 10:32 → MEDTELE 13:45
PROVIDERS: ADMIT Internal Medicine; ATTEND Internal Medicine Hematology & Oncology
PROC: 30233N1 Transfusion of Nonautologous Red Blood Cells into Peripheral Vein, Percutaneous Approach (ICD-10-PCS; principal; 2017-12-10)
PROC: 0DB98ZX Excision of Duodenum, Via Natural or Artificial Opening Endoscopic, Diagnostic (ICD-10-PCS; 2017-12-13)
PROC: 0DB38ZX Excision of Lower Esophagus, Via Natural or Artificial Opening Endoscopic, Diagnostic (ICD-10-PCS; 2017-12-13)
DX: I48.91 Unspecified atrial fibrillation (principal); K26.4 Chronic or unspecified duodenal ulcer with hemorrhage; D62 Acute posthemorrhagic anemia; K92.1 Melena; I38 Endocarditis, valve unspecified; N17.9 Acute kidney failure, unspecified; I42.9 Cardiomyopathy, unspecified; E86.0 Dehydration; I10 Essential (primary) hypertension; E78.5 Hyperlipidemia, unspecified; I73.9 Peripheral vascular disease, unspecified; I25.10 Atherosclerotic heart disease of native coronary artery without angina pectoris; M19.042 Primary osteoarthritis, left hand; M19.041 Primary osteoarthritis, right hand; F32.9 Major depressive disorder, single episode, unspecified; F41.9 Anxiety disorder, unspecified; Z96.1 Presence of intraocular lens; E83.42 Hypomagnesemia; G89.29 Other chronic pain; C50.919 Malignant neoplasm of unspecified site of unspecified female breast; E87.5 Hyperkalemia; R19.7 Diarrhea, unspecified; K44.9 Diaphragmatic hernia without obstruction or gangrene; Z92.21 Personal history of antineoplastic chemotherapy; Z87.891 Personal history of nicotine dependence; Z98.51 Tubal ligation status; Z90.710 Acquired absence of both cervix and uterus; Z98.42 Cataract extraction status, left eye; Z98.41 Cataract extraction status, right eye; Z72.89 Other problems related to lifestyle; Z82.49 Family history of ischemic heart disease and other diseases of the circulatory system
CPT/HCPCS: 36415; 71045; 80048; 80053; 81003; 81015; 82270; 82272; 82550; 82553; 82728; 83540; 83550; 83605; 83735; 83880; 84443; 84484; 85025; 85060; 85610; 86850; 86900; 86901; 86922; 87077; 87086; 88305; 93005; 93306; 96361; 96374; 96375; 99156; 99213; 99219; 99232; 99239; 99283; A9270-GY; G0463; J0153; J0780; J1100; J1160; J1650; J2250; J2405; J3010; J3475; J3480; P9040; Q0164